=== PATIENT | female | born 1975 | race Caucasian/White ===

== ENCOUNTER 2017-01-17 13:23 | Emergency (ER) | payer OTHER ==
[~2017-01-17] VITALS: Ht 157.5 cm; Wt 89.8 kg
[~2017-01-17 13:23] MED LIST: ASPIR 8181 MG PO; LISINOPRIL30 MG PO; METOPROLOL SUCC50 M2 PO; ZESTRIL20 PO
[2017-01-17 15:25] VITALS: BP 169/97
== END 2017-01-17 15:25 | disposition home or self-care (01) ==
LOC: ED 13:23
DX: S86.911A Strain of unspecified muscle(s) and tendon(s) at lower leg level, right leg, initial encounter (principal); I10 Essential (primary) hypertension; X58.XXXA Exposure to other specified factors, initial encounter; Y93.89 Activity, other specified; Y99.8 Other external cause status; Y92.89 Other specified places as the place of occurrence of the external cause
CPT/HCPCS: J1885